=== PATIENT | male | born 1990 | race Caucasian/White ===

== ENCOUNTER 2020-04-22 17:34 | Emergency (ER) | payer OTHER, SELFPAY ==
--- NOTE | ~2020-04-22 | XR_ITS ---
EXAMINATION: XR chest 2V 04/22/2020 18:21 INDICATION: Chronic cough PROCEDURE: 2 view chest COMPARISON: No prior studies for comparison. FINDINGS: The lungs are clear. The cardiomediastinal silhouette is within normal limits. There are no pleural effusions. There is no pneumothorax suspected. IMPRESSION: 1: NO ACUTE CARDIOPULMONARY DISEASE. Reviewed, dictated and finalized at location A. [facility] [employer]
[2020-04-22 17:57] VITALS: BP 140/89; PULSE 87; RESP 20; TEMP 36.9; O2SAT 97
--- NOTE | 2020-04-22 18:02 | ED.GENADULT ---
HPI - General Adult General Chief complaint: Upper Respiratory Infection Stated complaint: cough Time Seen by Provider: 04/22/20 18:02 Source: patient Mode of arrival: ambulatory Limitations: no limitations History of Present Illness HPI narrative: 29-year-old male patient presents to the [facility] with complaints of a cough and wheezing. Patient states he was diagnosed with asthmatic bronchitis back in May of this year. Patient states that since then he has had this chronic cough. Patient states he did go to the ER over the summer when the cough got really bad and was prescribed some albuterol inhaler and a steroid. Patient states it did get better but he has been trying to get into a primary doctor and cannot find a primary doctor take his insurance. Patient states that the cough never really went away and now for the last month the cough is gotten worse. Patient states at times he does cough up some yellow sputum. Patient states he is a smoker and states he was smoking 2 packs a day currently down to about a half a pack a day. Denies any fevers, body aches or chills. Patient states he does feel short of breath at times. Denies any abdominal pain, nausea, vomiting or diarrhea. Denies any chest pain at this time. Related Data Allergies Allergy/AdvReac Type Severity Reaction Status Date / Time No Known Allergies Allergy Verified 04/22/20 18:08 Review of Systems Review of Systems: Narrative: CONSTITUTIONAL: Denies fever, chills, or sweats. EYES: Denies visual changes, redness, or discharge. ENT: Denies rhinorrhea, congestion, sore throat, or otalgia. CARDIOVASCULAR: Denies chest pain, palpitations, or edema. RESPIRATORY: Positive chronic cough with dyspnea. GASTROINTESTINAL: Denies abdominal pain, nausea, vomiting, or diarrhea. GENITOURINARY: Denies dysuria or hematuria. SKIN: Denies rash or itching. MUSCULOSKELETAL: Denies back pain, joint pain, or myalgia. NEUROLOGIC: Denies headache, numbness, or weakness. PSYCHIATRIC: Denies anxiety or depression. [facility] Past Medical History Medical History (Updated 04/22/20 @ 18:44 by MELVINA Kuhn) Bronchitis Social History Social History (Updated 04/22/20 @ 18:03 by MELVINA Kuhn) Smoking status: Current every day smoker Comments Vital signs reviewed Exam Narrative: Exam Narrative: GENERAL: Well-appearing, well-nourished, and in no acute distress. HEAD: Normocephalic, atraumatic. EYES: PERRLA and EOMI. ENT: Nares clear, no rhinorrhea or epistaxis. Mucous membranes moist. Bilateral TMs are clear no erythema or foreign bodies to the canal. Posterior pharynx with no erythema, tonsillar joint, exudates or lesions present. NECK: Supple. No lymphadenopathy CHEST: Patient has inspiratory and expiratory wheezing noted to bilateral upper lower lobes on auscultation. No respiratory distress. HEART: Regular rate and rhythm. No murmur heard. Normal peripheral pulses. ABDOMEN: Soft, nontender, nondistended, normal active bowel sounds. EXTREMITIES: Normal range of motion. No edema. SKIN: Warm, dry, no rash. NEURO: No focal deficits. Alert and oriented x3. Course Reevaluation(s) Reevaluation #1: Reevaluated patient after his breathing treatment had finished. Patient states he does feel much better after receiving the breathing treatment. Lungs are much improved and only hears slight expiratory wheezing noted to the right lower lobe the rest of the lobes do sound much better and clear. Discussed with patient that I am to treat him similar to a bronchitis and discharge him home with an albuterol inhaler, oral steroids, and antibiotics since he has had this now for a month. We will also give him some Tessalon Perles to help with the coughing and I am also going to give him an allergy medication. Discussed with him that sometimes chronic coughs are due to allergens that can cause asthmatic episodes and I would encourage him to be vigilant about this and try to remove th
[2020-04-22] MEDS: ALBUTEROL SULFATE NEB 2.5 MG/3 ML INH INHALATION (18:18)
[2020-04-22] MEDS: IPRATROPIUM BR 0.02% INH SOLN 0.5 MG/2.5 ML VIAL INHALATION (18:18)
== END 2020-04-22 18:52 | disposition home or self-care (01) ==
PROVIDERS: Emergency Provider Nurse Practitioner Family
DX: J40 Bronchitis, not specified as acute or chronic (principal); J06.9 Acute upper respiratory infection, unspecified; F17.200 Nicotine dependence, unspecified, uncomplicated
CPT/HCPCS: 71046; 94640; 99203; G0463

== ENCOUNTER 2022-04-15 12:07 | Emergency (ER) | payer OTHER, SELFPAY ==
[2022-04-15 12:33] VITALS: BP 133/88; PULSE 83; RESP 18; TEMP 36.6; O2SAT 99
--- NOTE | 2022-04-15 13:11 | ED.GENADULT ---
HPI - General Adult General Chief complaint: Dental/Oral Stated complaint: toothache Time Seen by Provider: 04/15/22 13:11 Source: patient Mode of arrival: ambulatory Limitations: no limitations History of Present Illness HPI narrative: 31-year-old male presents with complaint of right lower dental pain for several weeks . States that he has a dentist but the dentist wants to charge a observed about money . Is waiting until his dad can cover it with his insurance. Requesting antibiotics today. all systems negative except as noted above. Related Data Allergies Allergy/AdvReac Type Severity Reaction Status Date / Time No Known Allergies Allergy Verified 04/15/22 13:00 Review of Systems Review of Systems: CONSTITUTIONAL: Denies fever, chills, or sweats. EYES: Denies visual changes, redness, or discharge. ENT: Denies rhinorrhea, congestion, sore throat, or otalgia. Reports dental pain. CARDIOVASCULAR: Denies chest pain, palpitations, or edema. RESPIRATORY: Denies cough or dyspnea. GASTROINTESTINAL: Denies abdominal pain, nausea, vomiting, or diarrhea. GENITOURINARY: Denies dysuria or hematuria. SKIN: Denies rash or itching. MUSCULOSKELETAL: Denies back pain, joint pain, or myalgia. NEUROLOGIC: Denies headache, numbness, or weakness. PSYCHIATRIC: Denies anxiety or depression. All other systems reviewed are negative, except as documented in HPI. PMFSH Past Medical History Medical History (Updated 04/15/22 @ 13:23 by Rachelle Lai NP) Bronchitis Social History Social History (Updated 04/22/20 @ 18:03 by MELVINA Kuhn) Smoking status: Current every day smoker Comments At time of signature, agree with nursing past medical, surgical, social and family history. There is no relevant family history pertinent to the presenting complaint. Exam Narrative: GENERAL: This is a well-nourished, well-developed patient, in no apparent distress. HEAD: normocephalic, atraumatic. EYES: PERRL. Sclera clear/white. Vision is grossly intact. EARS: External ears normal NOSE: External nose normal MOUTH: THERE IS A HOLE IN TOOTH NUMBER 31. NOSE SIGNIFICANT SURROUNDING ERYTHEMA OR FLUCTUANCE CONCERNING FOR ABSCESS. NECK: Neck supple, non-tender without lymphadenopathy, masses or thyromegaly. CARDIOVASCULAR: Regular rate and rhythm without murmurs, gallops, or rubs. RESPIRATORY: Clear to auscultation. Breath sounds equal bilaterally. No wheezes, rales, or rhonchi. SKIN: warm, Dry, intact with no suspicious lesions or rash, good texture and turgor. NEURO: awake, alert, and oriented to person, place and time. There were no obvious focal neurologic abnormalities. EXTREMITIES: No joint tenderness, effusion, or edema noted. Course Course Level of Care: Express Care Visit Vital Signs Vital signs: Vital Signs Temperature 36.6 C 04/15/22 12:33 Pulse Rate 83 04/15/22 12:33 Respiratory Rate 18 04/15/22 12:33 Blood Pressure 133/88 04/15/22 12:33 Pulse Oximetry 99 04/15/22 12:33 Oxygen Delivery Room Air 04/15/22 12:33 Temperature 36.6 C 04/15/22 12:33 Pulse Rate 83 04/15/22 12:33 Respiratory Rate 18 04/15/22 12:33 Blood Pressure 133/88 04/15/22 12:33 Pulse Oximetry 99 04/15/22 12:33 Oxygen Delivery Room Air 04/15/22 12:33 REVIEWED Medical Decision Making MDM Narrative Medical decision making narrative: Patient is aware of diagnosis, understands and agrees to treatment plan. Anticipatory guidance given. Patient agrees to follow-up as directed and is aware of reasons to seek care at the emergency department. Portions of this record may have been created with voice recognition software Vital Signs Vital Signs: Vital Signs Temperature 36.6 C 04/15/22 12:33 Pulse Rate 83 04/15/22 12:33 Respiratory Rate 18 04/15/22 12:33 Blood Pressure 133/88 04/15/22 12:33 Pulse Oximetry 99 04/15/22 12:33 Oxygen Delivery Room Air 04/15/22 12:33 [facility]
== END 2022-04-15 13:30 | disposition home or self-care (01) ==
PROVIDERS: Emergency Provider Nurse Practitioner Family
DX: K08.89 Other specified disorders of teeth and supporting structures (principal); F17.200 Nicotine dependence, unspecified, uncomplicated
CPT/HCPCS: 99213; G0463

== ENCOUNTER 2022-09-16 14:51 | Emergency (ER) | payer OTHER, SELFPAY ==
[2022-09-16 15:00] VITALS: BP 156/70; PULSE 100; RESP 16; TEMP 36.3; O2SAT 100
--- NOTE | 2022-09-16 15:02 | ED.URI ---
HPI - URI/Sore Throat General Chief Complaint: Upper Respiratory Infection Stated Complaint: medication request Time Seen by Provider: 09/16/22 15:02 Source: patient Mode of arrival: ambulatory Limitations: no limitations History of Present Illness HPI Narrative: Patient is a 31-year-old male who presents with asthma exacerbation the last 2 weeks. Patient states he is on his last puff of his inhaler. Patient denies any primary care provider at this time. States the symptoms are worse in the evenings. Denies any fever, chills, nausea, vomiting, diarrhea, congestion, ear pain, sore throat. Has been using his inhaler more often last week. Related Data Allergies Allergy/AdvReac Type Severity Reaction Status Date / Time No Known Allergies Allergy Verified 09/16/22 15:15 Review of Systems Review of Systems: All systems reviewed & are unremarkable except as noted in HPI and below Constitutional: Constitutional: Denies body ache(s), Denies chills, Denies fatigue, Denies fever(s), Denies headache(s), Denies malaise and Denies weakness Eyes: Eyes: Denies blurry vision, Denies irritation and Denies loss of vision ENT: Denies otalgia, Denies headache(s), Denies nasal discharge, Denies sinus pain and Denies sore throat Cardiovascular: Cardiovascular: Denies chest pain, Denies irregular heart rhythm and Reports dyspnea Respiratory: Respiratory: Reports cough and Reports dyspnea Gastrointestinal: Gastrointestinal: Denies abdominal pain, Denies melena, Denies hematochezia, Denies diarrhea, Denies nausea and Denies vomiting Musculoskeletal: Musculoskeletal: Denies back pain, Denies myalgias and Denies arthralgias Integumentary/Breasts: Skin/Breast: Denies pruritus and Denies rash Neurologic: Denies headache(s), Denies loss of vision and Denies weakness Psychiatric: Psychiatric: Reports no additional psychiatric complaints Endocrine: Endocrine: Denies fatigue PMFSH Past Medical History Medical History (Updated 09/16/22 @ 15:38 by Alejandra Banks APRN) Bronchitis Social History Social History (Updated 04/22/20 @ 18:03 by MELVINA Kuhn) Smoking status: Current every day smoker Comments At time of signature, agree with nursing past medical, surgical, social and family history. There is no relevant family history pertinent to the presenting complaint. Exam Const: General: cooperative, healthy appearing, comfortable, no acute distress and well nourished Nutritional Appearance: well nourished Orientation/consciousness: patient oriented x3 Limitations: no limitations HENMT: Head: normal to inspection, normocephalic and atraumatic Ears: hearing grossly normal bilaterally and external ears normal Face/Nose/Sinus: Normal external nose present, normal facial exam and face symmetric Face and sinus: normal facial exam and face symmetric Mouth: Yes lip normal Eyes: General: appearance normal, both eyes and all related structures Alignment and Position: alignment normal and position normal Periorbital: periorbital findings normal Eyelids: eyelids normal Pupils: Equal, round and reactive pupils present EOM: EOMs intact bilaterally Neck: Neck: normal visual inspection, full ROM and supple Chest: Chest palpation & inspection: normal inspection of the chest Resp: Effort & Inspection: normal respiratory effort and able to speak in complete sentences Auscultation: wheezes expiratory wheezes, inspiratory wheezes and throughout Cardio: Rate: regular rate Rhythm: regular rhythm Heart sounds: S1 normal heart sound present and S2 normal heart sound present GI: Inspection: normal to inspection Skin: General skin exam: normal color and no rashes or lesions noted Neuro: General: patient oriented x3 and moves all extremities Cranial nerves: Yes Equal, round and reactive pupils present Speech: normal speech Gait exam (Neuro): Normal gait present Extrem: General: normal to inspection, full ROM and no edema Psych: Nereida
[2022-09-16] MEDS: IPRATROPIUM BR 0.02% INH SOLN 0.5 MG/2.5 ML VIAL INHALATION (15:17)
[2022-09-16] MEDS: ALBUTEROL SULFATE NEB 2.5 MG/3 ML INH INHALATION (15:17)
== END 2022-09-16 15:45 | disposition home or self-care (01) ==
PROVIDERS: Emergency Provider Nurse Practitioner Family
DX: J45.41 Moderate persistent asthma with (acute) exacerbation (principal); F17.200 Nicotine dependence, unspecified, uncomplicated
CPT/HCPCS: 94640; 99213; G0463